=== PATIENT | female | born 1955 | race Caucasian/White ===

== ENCOUNTER → 2024-06-25 | Outpatient (CLI) | payer MEDICARE, OTHER ==
[2024-06-25 14:01] LABS: BASO # 0.02 K/mm3 (0.02-0.10); EOS # 0.09 K/mm3 (0.04-0.40); EOS % 1.6 % (1.0-5.0); HEMATOCRIT 41.7 % (37.0-47.0); HEMOGLOBIN 13.5 g/dL (12.5-16.0); LYMPH# 1.31 K/mm3 (1.50-4.00); MEAN CELL VOLUME 95 fl (78-100); MEAN CORPUSCULAR HEMOGLOBIN 31 pg (27-31); MEAN CORPUSCULAR HGB CONC 32 g/dL (33-37); MEAN PLATELET VOLUME 9.9 fl (7.4-10.4); MONO # 0.53 K/mm3 (0.20-0.80); NEU # 3.68 K/mm3 (1.40-6.50); PLATELET COUNT 263 K/mm3 (130-400); RED BLOOD COUNT 4.41 M/mm3 (4.10-5.30); WHITE BLOOD COUNT 5.7 K/mm3 (4.8-10.8)
[2024-06-25 14:03] LABS: ALBUMIN 4.4 g/dL (3.4-4.8)
[2024-06-25 14:04] LABS: CALCIUM 9.5 mg/dL (8.3-10.5)
[2024-06-25 14:06] LABS: TOTAL PROTEIN 6.6 g/dL (6.2-8.1)
[2024-06-25 14:07] LABS: TOTAL BILIRUBIN 0.5 mg/dL (0.2-1.2)
[2024-06-25 23:54] LABS: T3 TOTAL 91 ng/dL (35-193)
[2024-06-30 17:17] LABS: HEPATITIS C VIRUS ANTIBODY Nonreactive (Nonreactiv)
== END ==
LOC: LAB 13:44
PROVIDERS: Physician Assistant
DX: I10 Essential (primary) hypertension (principal); E03.9 Hypothyroidism, unspecified; E78.5 Hyperlipidemia, unspecified